=== PATIENT | male | born 1970 | race African-American/Black ===

== ENCOUNTER 2021-01-14 07:32 | Emergency (ER) | payer BC ==
[~2021-01-14] VITALS: Ht 188 cm; Wt 82.0 kg
[2021-01-14] MEDS ORDERED: AMLO10TA4 PO (07:42)
[2021-01-14 08:50] LABS: BASOPHILS % 0.8 % (0.0-2.0); EOSINOPHILS % 4.8 % (0.0-5.0); HEMATOCRIT. 40.1 % (42.0-52.0); HEMOGLOBIN. 13.3 g/dL (14.0-18.0); MEAN CORPUSCULAR HEMOGLOBIN 29.4 pg (28.0-32.0); MEAN CORPUSCULAR VOLUME 88.9 fL (80.0-94.0); MEAN PLATELET VOLUME 8.7 fl (7.4-10.4); MONOCYTES % 9.8 % (2.0-8.0); NEUTROPHILS % 60.6 % (40.0-76.0); PLATELET 176 x1000/uL (130-400); RED BLOOD CELL COUNT 4.51 mill/uL (4.7-6.1); RED CELL DISTRIBUTION WIDTH 12.4 % (11.6-14.6)
[2021-01-14 08:55] LABS: CHLORIDE 106 mEq/L (98-107)
[2021-01-14 10:40] VITALS: BP 112/77
== END 2021-01-14 10:45 | disposition home or self-care (01) ==
LOC: ER 07:36
DX: R53.1 Weakness (principal); I10 Essential (primary) hypertension
CPT/HCPCS: 36415; 80053; 82962; 85025; 93005; 99284; Z7610